=== PATIENT | female | born 1990 | race Caucasian/White ===

== ENCOUNTER 2022-09-18 13:22 | Emergency (ER) | payer BC ==
[2022-09-18] MEDS ORDERED: Ondansetron PF 4 MG/2 ML Vial ONE (14:19)
[2022-09-18] MEDS ORDERED: Famotidine/PF 20 mg/2ml Vial ONE (14:19)
[2022-09-18 14:34] LABS: #Basophils 0.1 thou/uL (0.0-0.2); #Lymphocytes 1.5 thou/uL (1.20-3.40); #Monocytes 0.9 thou/uL (0.11-0.59); #Neutrophils 7.1 thou/uL (1.40-6.50); %Basophils 1.5 % (0.0-1.0); %Eosinophils 0.1 % (0.0-10.0); %Lymphocytes 15.9 % (21.0-51.0); %Monocytes 9.6 % (0.0-10.0); %Neutrophils 72.9 % (42.0-75.0); Hemoglobin 15.8 g/dL (12.0-16.0); Mean Corpuscular HGB CONC 30.7 g/dL (32.0-36.0); Mean Corpuscular Hemoglobin 27.5 pg (27.0-31.0); Mean Corpuscular Volume 89.5 fl (78.0-98.0); Mean Platelet Volume 8.6 fL (7.4-10.4); Platelet Count 343 10x3/uL (130-400); RBC Distribution Width 14.6 % (11.5-14.5); Red Blood Cell (RBC) Count 5.75 mill/uL (4.20-5.40); White Blood Cell (WBC) Count 9.7 10x3/uL (4.8-10.8)
[2022-09-18 14:54] LABS: ALT (SGPT) 21 U/L (8-55); AST (SGOT) 13 U/L (5-34); Albumin 4.7 g/dL (3.5-5.0); Alkaline Phosphatase 63 U/L (40-110); Anion Gap 14 mmol/L (10-20); BUN (Urea Nitrogen) 9 mg/dL (7.0-18.7); Bilirubin, Total 0.4 mg/dL (0.2-1.2); Calc. Creatinine Clearance 0 mL/min (70-130); Calcium 9.7 mg/dL (7.8-10.44); Carbon Dioxide 29 mmol/L (22-29); Chloride 97 mmol/L (98-107); Estimated GFR 95; Globulin 3.1 g/dL (2.4-3.5); Glucose 120 mg/dL (70-105); Lipase 13 U/L (8-78); Potassium 3.4 mmol/L (3.5-5.1); Protein, Total 7.8 g/dL (6.0-8.3); Sodium 137 mmol/L (136-145)
[2022-09-18 15:02] LABS: Bilirubin Small (Negative); Blood, Urine Negative (Negative); Clarity Slightly Cloudy (Clear); Glucose, Urine (Dipstick) Negative (Negative); Ketone, Urine 40 mg/dL (Negative); Leukocyte Trace (Negative); Nitrite Negative (Negative); Protein, Urine (Dipstick) 100 mg/dL (Neg-Trace); Specific Gravity, Urine 1.015 (1.005-1.030)
[2022-09-18 15:03] LABS: pH, Urine Greater/Equal 9.0 (5.0-9.0)
[2022-09-18 15:04] LABS: Pregnancy Test - Urine (BHCG) Negative (Negative); Pregu Control Background? CLEAR/WHITE (CLR/WHITE); Pregu Control Bar Appear? YES (CONTROL BAR); Specific Gravity 1.015 (1.002-1.036)
[2022-09-18 15:08] LABS: RBC/HPF None Seen HPF (0-3)
[2022-09-18 15:09] LABS: Bacteria/HPF 1+ HPF (None Seen); WBC/HPF 0-3 HPF (0-3)
[2022-09-18 15:10] LABS: Mucous/LPF Few LPF (<2+)
== END 2022-09-18 15:40 | disposition home or self-care (01) ==
LOC: BURERS 13:22
DX: R11.2 Nausea with vomiting, unspecified (principal); R10.13 Epigastric pain; F17.210 Nicotine dependence, cigarettes, uncomplicated
CPT/HCPCS: 36415; 80053; 81003; 81015; 81025; 83690; 85025; 96361; 96374; 96375; J2405; S0028